=== PATIENT | female | born 1985 | race Caucasian/White ===

== ENCOUNTER 2016-05-20 16:41 | Emergency (ER) | payer OTHER ==
[2016-05-20 17:18] VITALS: TEMP 98.6; BMI 22.5
[2016-05-20 18:09] LABS: AUTOMATED BASOPHIL 1.3 % (0-2); AUTOMATED EOSINOPHIL 1.3 % (0-5); AUTOMATED LYMPH 34.2 % (17-44); AUTOMATED MONOCYTE 13.4 % (3-10); AUTOMATED NEUTROPHIL 49.8 % (45-76)
[2016-05-20 18:16] LABS: BLOOD UREA NITROGEN 12 MG/DL (7-17); CALCIUM 9.4 MG/DL (8.4-10.2); CALCULATED OSMOLALITY 268 MOs/Kg (270-290); CHLORIDE 102 mEq/L (98-107); GLUCOSE 88 MG/DL (70-99); SODIUM LEVEL 140 mEq/L (137-146); TOTAL PROTEIN 8.6 G/DL (6.3-8.2)
[2016-05-20 18:33] LABS: QUANTITATIVE SERUM HCG < 2.4 mIU/mL (<5)
--- NOTE | 2016-05-20 18:35 | EDPRACDOC ---
- General Information Chief Complaint: Vaginal Bleeding Stated Complaint: 9 WKS PREG.BLEEDING Time Seen by Provider: 05/20/16 17:48 Information Source: Patient Mode of Arrival: Car Home Medications: Home Medications Calcium Carbonate [Calcium] 600 mg PO DAILY 05/20/16 Vits W-Ca,Fe,FA(<1Mg) [] 1 tab PO DAILY 05/20/16 Allergies/Adverse Reactions: Allergies Allergy/AdvReac Type Severity Reaction Status Date / Time No Known Allergies Allergy Verified 05/20/16 17:18 - History of Present Illness Onset: 2 days HPI: PT APPROX 9 WEEK PREG, FDLMP 03/19, . PASSING CLOTS WITH LOWER ABD CRAMPS. 4/10. 1 PAD TODAY. HAD SPOTTING EARLIER IN THE MONTH. FIRST OB APPOINTMENT COMING THIS WEDNESDAY. ON PRENATALS. THINKS SHE IS O + ED Past Medical History - Patient Medical History Psychological History: Denies: Depression Systemic History: Denies: Cancer Surgical History: Reports: Tonsillectomy/Adnoidectomy. Denies: Hysterectomy - Social Medical History Smoking Status: Never smoker EDM Review of Systems - Review of Systems ROS Negative Except as Marked: Yes All systems reviewed and were negative except as marked Constitutional: No Symptoms Reported Eyes: No Symptoms Reported Respiratory: No Symptoms Reported Cardiovascular: No Symptoms Reported Gastrointestinal: Pain Neurological: Headache (HEADACHES SINCE .) Musculoskeletal: No Symptoms Reported Integumentary: No Symptoms Reported - Physical Exam Constitutional: Alert (Awake), No apparent distress Oriented to: Time, Person, Place Last recorded Vital Signs: Last Vital Signs Temp 98.6 F 05/20/16 17:16 Pulse 81 05/20/16 17:16 Resp 20 05/20/16 17:16 BP 144/71 05/20/16 17:16 Pulse Ox 96 05/20/16 17:16 Oxygen Pulse Oxygen Saturation 96 O2 Device Room Air Oxygen Flow Rate Fraction of Inspired Oxygen ( FIO2) - HEENT Head: Normal ( normocephalic) Eye Exam: Normal (PERRL, EOMI, Sclera white) Oropharynx: Normal (Pharynx:Moist without exudate,Gums-no swelling) Nose: No Symptoms Reported (septum midline) Neck: Normal (FROM, trachea at midline) - Respiratory/Cardiovascular Respiratory: Normal - CTA (BBS clear to auscultation without adventitious sounds ) Cardiovascular: Normal (RRR without murmur, gallop or rub) - GI Auscultation: Normal (NABS) Palpation: Normal (Soft,No rebound or guarding, non distended) Tenderness: Non tender Earl's Sign: Negative - Musculoskeletal Back: Normal (Non-Tender) Extremities: Normal (Normal tone, Pulses 2+ No cyanosis or edema, FROM) - Integumentary Skin: Normal, Warm, Dry Lymphatics: Normal (no adenopathy) - Neurologic Memory Impaired: Normal Motor Function: Normal (Normal tone, Pulses 2+ No cyanosis or edema, FROM) Cranial Nerve: Normal (CN II-X11 intact sensation, strength 5/5) Cerebellar: Normal Mood Description: Normal Perception: Normal - Results 05/20/16 17:45 05/20/16 17:45 WBC 6.4 xk/uL (3.8-10.8) 05/20/16 17:45 RBC 4.73 xM/uL (4.20-5.40) 05/20/16 17:45 Hgb 13.8 g/dL (12.0-16.0) 05/20/16 17:45 Hct 41.7 % (36-47) 05/20/16 17:45 MCV 88 fL (81-99) 05/20/16 17:45 MCH 29.1 pg (27-32) 05/20/16 17:45 MCHC 33.1 g/dl (33-36) 05/20/16 17:45 RDW 12.9 % (11.5-14.5) 05/20/16 17:45 Plt Count 216 xk/uL (130-400) 05/20/16 17:45 MPV 10.0 fL (7.4-10.4) 05/20/16 17:45 Neut % (Auto) 49.8 % (45-76) 05/20/16 17:45 Lymph % (Auto) 34.2 % (17-44) 05/20/16 17:45 [place] % (Auto) 13.4 % (3-10) H 05/20/16 17:45 Eos % (Auto) 1.3 % (0-5) 05/20/16 17:45 Baso % (Auto) 1.3 % (0-2) 01/25/17 17:45 Absolute Neuts (auto) 3.14 xk/uL (1.7-8.2) 05/20/16 17:45 Absolute Lymphs (auto) 2.18 xk/uL (0.65-4.75) 05/20/16 17:45 Lab Results 05/20/16 17:45 WBC 6.4 RBC 4.73 Hgb 13.8 Hct 41.7 MCV 88 MCH 29.1 MCHC 33.1 RDW 12.9 Plt Count 216 MPV 10.0 Neut % (Auto) 49.8 Lymph % (Auto) 34.2 [place] % (Auto) 13.4 H Eos % (Auto) 1.3 Baso % (Auto) 1.3 Absolute Neuts (auto) 3.14 Absolute Lymphs (auto) 2.18 Decision Time to Discharge: 20:50 - Departure Yes I personally saw and evaluated the patient. Disposition: Home Condition: Stable Final Diagnosis: Spontaneous Instructions: Miscarriage (ED) Education/Counseling Given To: Patient Education/Counseling Given Regarding: Diagnosis Additional Instructions: FOLLOW UP WITH OB SCHEDULED. MOTRIN 600 MG THREE TIMES DAILY NEEDED FOR PAIN/CRAMPS.
--- NOTE | 2016-05-20 20:49 | DIRPT ---
CLINICAL DATA: patient with vaginal bleeding for 2 days. Quantitative HCG 2.4. EXAM: OBSTETRIC <14 WK US AND TRANSVAGINAL OB US TECHNIQUE: Both transabdominal and transvaginal ultrasound examinations were performed for complete evaluation of the gestation as well as the maternal uterus, adnexal regions, and pelvic cul-de-sac. Transvaginal technique was performed to assess early . COMPARISON: None. FINDINGS: Intrauterine gestational sac: Not visualized. Yolk sac: Not applicable. Embryo: Not applicable. Cardiac Activity: Not applicable. Maternal uterus/adnexae: Unremarkable. IMPRESSION: No evidence of is identified on this examination. Recommend follow-up serial quantitative HCG. Findings may represent early gestation or completed . Electronically Signed By: Geoff Worthington M.D. On: 05/20/2016 20:46
[2016-05-20 21:05] VITALS: BP 136/69; PULSE 79
== END 2016-05-20 21:04 | disposition home or self-care (01) ==
LOC: ED 16:41
DX: O03.9 Complete or unspecified spontaneous abortion without complication (principal)
CPT/HCPCS: 36415; 76801; 76817; 80053; 84702; 85025; 86900; 86901; 99283